=== PATIENT | female | born 1990 | race Caucasian/White ===

== ENCOUNTER 2018-04-06 16:23 | Inpatient (IN) | payer BC ==
[~2018-04-06] VITALS: Ht 172.7 cm; Wt 78.6 kg
[2018-04-21] VITALS (10 sets, daily range): BP systolic 114–138; BP diastolic 64–86; PULSE 71–86; TEMP 98.2
--- NOTE | 2018-04-21 18:55 | NUR ---
at 39 weeks and 3 days arrives to unit for scheduled induction of labor. Pt ambulatory accompanied by spouse. Pt oriented to room, bed in low and locked position, call light within reach, and clean gown on. Pt reports feeling good movement, reports occasional contrations, denies LOF or vaginal bleeding. EFM and toco explained and applied. Plan of care and method of induction reviewed with patient and spouse, both verbalized understanding. SVE 0.5/70/-3
--- NOTE | 2018-04-21 19:20 | NUR ---
IV started in left forearm with 1 attempt. Labs obtained off of IV start. Lactated Ringers infusing to gravity.
--- NOTE | 2018-04-21 19:40 | NUR ---
Cervidil placed in posterior fornix of vagina at this time. Pt educated to remain in a semi flat position with wedge on either side for initial 2 hours. Pt also informed of nothing to eat or drink in first 2 hours after cervidil placement. Pt verbalizes understanding.
[2018-04-21] MEDS ORDERED: [UNRECOGNIZED DRUG - OTHER] (19:51)
[2018-04-21] MEDS ORDERED: DEXTROSE (19:51)
[2018-04-21] MEDS ORDERED: PRENATAL MVI (19:52)
[2018-04-21] MEDS ORDERED: ASPIRIN 81M81 MG/TA2 PO ×2 (19:52→20:12)
[2018-04-21 19:54] LABS: BASO % 0.4 % (0.0-2.0); EOS % 0.4 % (0-4.0); GRAN # 4.9 (1.4-6.5); GRAN % 62.8 % (42.2-75.2); HEMATOCRIT 39.9 % (37.0-47.0); HEMOGLOBIN 14.1 g/dl (12.5-16.0); LYMPH % 25.3 % (20.0-51.0); MEAN CELL VOLUME 93 fl (80.0-100.0); MEAN CORPUSCULAR HEMOGLOBIN 33 pg (27.0-31.0); MEAN CORPUSCULAR HGB CONC 35 g/dl (33.0-37.0); MEAN PLATELET VOLUME 11.3 fl (7.4-10.4); MONO # 0.8 (0.1-0.6); MONO % 10.5 % (1.7-9.3); PLATELET COUNT 163 K/mm3 (130-400); RED BLOOD COUNT 4.31 M/mm3 (4.10-5.30); REDCELL DISTRIBUTION WIDTH-CV 12.4 % (11.5-14.5)
[2018-04-22] VITALS (54 sets, daily range): BP systolic 100–139; BP diastolic 57–87; PULSE 64–130; TEMP 97.5–99
--- NOTE | 2018-04-22 09:30 | NUR ---
Pt requesting epidural. Jody Swenson CRNA notified. Upon arrival to unit, due to recent heparin injection, orders for PTT. Labs resulted. PTT too high for epidural placement at this time. Dr. Jimenez notified of lab results. Orders to discontinue pitocin infusion. Pt opts to use whirlpool for pain management. Will recheck PTT in afternoon and reasses pain management options. Pt agrees to POC. 1102-FHR reassuring. Pt taken off monitors. Into whirlpool at this time.
--- NOTE | 2018-04-22 11:18 | NUR ---
Pt back to birthing ball. 1150-SVE per this RN /-2. Reactive FHR strip. Pt taken off monitors to [facility].
--- NOTE | 2018-04-22 12:20 | NUR ---
doppler performed. FHR audible. VSS.
--- NOTE | 2018-04-22 14:28 | NUR ---
Pt sitting upright for epidural placement. 1439-Test dose administed by Messi Cavanaugh CRNA. No adverse effects noted. See anesthesia record. Pt repositioned WR. Call light within reach. Safety reviewed. Updated on POC. No questions or concerns at this time.
--- NOTE | 2018-04-22 16:35 | NUR ---
Difficulty tracing FHR. RN at bedside adjusting monitors. FHR audible.
--- NOTE | 2018-04-22 17:00 | NUR ---
SVE per Dr. Jimenez /1. Orders to continue increasing pitocin.
--- NOTE | 2018-04-22 17:35 | NUR ---
Dr. Jimenez notified of SVE and FH decelerations. No new orders at this time.
--- NOTE | 2018-04-22 18:30 | NUR ---
Recurrent variables noted with each contraction down to 70-90 with spontaneous return to baseline. Moderate variability in between contractions.
--- NOTE | 2018-04-22 19:00 | NUR ---
Recurrent variable decelerations noted with contractions with spontaneous return to baseline. Moderate variability in between contractions.
--- NOTE | 2018-04-22 19:15 | NUR ---
Recurrent variable decelerations noted with contractions with spontaneous return to baseline. Moderate variability noted in between contractions. 1914 - SVE 10/100/+1. Pt educated on pushing techniques, verbalized understanding. 1917 - Initial push, pt pushing well with contractions. 1939 - Pt continues to push well with contractions. Occasional late decelerations and variable decelerations noted. Moderate variability in between contractions. Payne removed at this time. 100 mL clear, yellow, urine out. 1947 - Pt pushing well with contractions. Small crown with pushes. Dr. Jimenez called for delivery. 1954 - 500 emesis 1999 - Pt pushing very well with contractions, told not to continue pushing at this time until Dr. Jimenez is at bedside, pt verbalized understanding. 2002 - Pt encouraged to take slow cleansing breaths during contractions. 2013 - Dr. Jimenez gowned and gloved at perineum, pt told to begin pushing again, pushing well with contractions. 2019 - Spontaneous vaginal delivery of viable baby girl. Dr. Jimenez placed infant on mothers abdomen, care of infant assumed to nursery RN Fabiano. Cord clamped and cut. Cord blood obtained. Pitocin off. 2022 - Spontaneous delivery of intact placenta. Pitocin infusing at 333 mL/hr per protocol. Fundal massage initiated by this RN. Fundus firm and down 1 from umbilicus. 2024 - Perineal repairs by Dr. Jimenez. Red lisa to drain bladder. 2029 - Pericare provided. Ice pack to perineum. New chux pad beneath patient. Pt repositioned in bed to high fowlers.
--- NOTE | 2018-04-22 23:50 | NUR ---
Pt able to lift and hold both legs off of bed for 5 seconds. Pt positioned to sitting on edge of bed. Epidural catheter removed, tip round and intact, pt tolerated well. Pt able to ambulate to bathroom with standby assistance. Pt unable to void at this time. Pericare explained and performed. Clean gown on. New panties and pad applied. Pt transferred to room 214 by wheelchair with belongings.
[2018-04-23 03:00] VITALS: BP 109/70; PULSE 86; TEMP 98
[2018-04-23 07:20] VITALS: BP 107/75; PULSE 118; TEMP 97.7
--- NOTE | 2018-04-23 09:09 | NUR ---
Initial visit; Parents and family thanked Pad Extraction Tender for offering congratulations and God's blessings for the of their little girl. Pad Extraction Tender thanked them for choosing [facility]. They spoke of how wonderful their experience here has been.
[2018-04-23 10:25] LABS: BASO # 0.1 (0.0-0.2); BASO % 0.3 % (0.0-2.0); EOS % 0.2 % (0-4.0); GRAN # 13.8 (1.4-6.5); GRAN % 79.4 % (42.2-75.2); LYMPH # 2.1 (1.2-3.4); LYMPH % 12.1 % (20.0-51.0); MEAN CELL VOLUME 94 fl (80.0-100.0); MEAN CORPUSCULAR HGB CONC 35 g/dl (33.0-37.0); MEAN PLATELET VOLUME 10.5 fl (7.4-10.4); MONO # 1.2 (0.1-0.6); MONO % 7.1 % (1.7-9.3); PLATELET COUNT 151 K/mm3 (130-400); RED BLOOD COUNT 3.56 M/mm3 (4.10-5.30); REDCELL DISTRIBUTION WIDTH-CV 12.6 % (11.5-14.5)
[2018-04-23 11:00] VITALS: BP 115/71; PULSE 101; TEMP 97.2
[2018-04-23 11:07] LABS: HEMATOCRIT 33.4 % (37.0-47.0); MEAN CORPUSCULAR HEMOGLOBIN 33 pg (27.0-31.0)
[2018-04-23 11:08] LABS: HEMOGLOBIN 11.8 g/dl (12.5-16.0)
[2018-04-23 15:39] VITALS: BP 121/69; PULSE 99; TEMP 97.5
[2018-04-23 20:00] VITALS: BP 112/65; PULSE 100; TEMP 97.8
[2018-04-24 02:00] VITALS: BP 120/68; PULSE 80; TEMP 98
--- NOTE | 2018-04-24 02:00 | NUR ---
BABY IS VERY FUSSY- GASSY- DOES NOT LATCH WELL- MOM AND DAD EXPRESS FRUSTRATION- COMFORT MEARSURES REVIEWED
[2018-04-24 05:35] VITALS: BP 118/78; PULSE 99; TEMP 99
[2018-04-24] MEDS ORDERED: PERCOCET 325 MG1 TA2 PO (08:19)
[2018-04-24] MEDS ORDERED: MOTRIN 800800 MG/TAB PO (08:19)
[2018-04-24 08:44] VITALS: BP 124/71; PULSE 118; TEMP 97.5
== END 2018-04-24 13:40 | disposition home or self-care (01) | DRG 806 ==
LOC: LDR 04-21 07:24 → OB 04-23 00:01 → EDSTATUS 04-25 07:23 → LDRO 04-25 16:23
PROVIDERS: ADMIT Obstetrics & Gynecology
PROC: 3E0P7VZ Introduction of Hormone into Female Reproductive, Via Natural or Artificial Opening (ICD-10-PCS; 2018-04-21)
PROC: 10E0XZZ Delivery of Products of Conception, External Approach (ICD-10-PCS; principal; 2018-04-22)
PROC: 0KQM0ZZ Repair Perineum Muscle, Open Approach (ICD-10-PCS; 2018-04-22)
PROC: 3E033VJ Introduction of Other Hormone into Peripheral Vein, Percutaneous Approach (ICD-10-PCS; 2018-04-22)
PROC: 10907ZC Drainage of Amniotic Fluid, Therapeutic from Products of Conception, Via Natural or Artificial Opening (ICD-10-PCS; 2018-04-22)
DX: O99.12 Other diseases of the blood and blood-forming organs and certain disorders involving the immune mechanism complicating childbirth (principal); D68.51 Activated protein C resistance; Z37.0 Single live birth; Z3A.39 39 weeks gestation of pregnancy; O70.1 Second degree perineal laceration during delivery; O77.0 Labor and delivery complicated by meconium in amniotic fluid; O69.81X0 Labor and delivery complicated by cord around neck, without compression, not applicable or unspecified; O70.0 First degree perineal laceration during delivery; Z86.73 Personal history of transient ischemic attack (TIA), and cerebral infarction without residual deficits; N80.8 Other endometriosis; Z79.01 Long term (current) use of anticoagulants
CPT/HCPCS: J1200; J1644; J1650; J2590; J7120

== ENCOUNTER 2020-01-31 05:19 | Inpatient (IN) | payer BC ==
[2020-01-31] VITALS (36 sets, daily range): BP systolic 102–142; BP diastolic 56–79; PULSE 71–116; TEMP 97.9–98.7
[~2020-01-31] VITALS: Ht 170.2 cm; Wt 84.1 kg
--- NOTE | 2020-01-31 05:15 | NUR ---
G3L1 at 38 weeks and 1 day arrive to unit with complaint of spontaneous rupture of membranes. Pt states around 0230 she felt a gush down her leg and has continued to leak small amounts of blood tinged fluid since then. Pt also reports contractions every 6-7 minutes. Good movement. Pt denies problems this . Was seeing MFM for Factor V and is currently taking Lovenox. Denies headaches, blurry vision, or RUQ pain. Pt oriented to room, call light within reach, bed in low and locked position. Clean gown on. US and toco explained and applied. Plan of care reviewed with patient and spouse. Admission assessment started. Vital signs obtained. SVE 3/80/-3, vertex position. Amnitrace negative.
[~2020-01-31 05:19] MED LIST: ASPIRIN 81M81 MG/TA2 PO; DEXTROSE; MOTRIN 800800 MG/TAB PO; PERCOCET 325 MG1 TA2 PO; PRENATAL MVI; [UNRECOGNIZED DRUG - OTHER]
[2020-01-31] MEDS ORDERED: LOVENOX 4040 MG/0.4 SQ (05:40)
--- NOTE | 2020-01-31 08:30 | NUR ---
PT FELT A GUSH OF FLUID. AMNIOTRACE POSITIVE. DR LUNA HERE AT THE HOSPITAL AND NOTIFIED. IN TO SEE PT AND DISCUSS PLAN OF CARE.
[2020-01-31 09:45] LABS: BASO % 0.3 % (0.0-2.0); EOS % 0.1 % (0-4.0); GRAN # 7.2 (1.4-6.5); GRAN % 79.4 % (42.2-75.2); HEMATOCRIT 39.7 % (37.0-47.0); HEMOGLOBIN 13.9 g/dl (12.5-16.0); LYMPH % 11.5 % (20.0-51.0); MEAN CELL VOLUME 93 fl (80.0-100.0); MEAN CORPUSCULAR HEMOGLOBIN 33 pg (27.0-31.0); MEAN CORPUSCULAR HGB CONC 35 g/dl (33.0-37.0); MEAN PLATELET VOLUME 10.6 fl (7.4-10.4); MONO # 0.8 (0.1-0.6); MONO % 8.3 % (1.7-9.3); PLATELET COUNT 176 K/mm3 (130-400); RED BLOOD COUNT 4.26 M/mm3 (4.10-5.30); REDCELL DISTRIBUTION WIDTH-CV 12.9 % (11.5-14.5)
--- NOTE | 2020-01-31 10:30 | NUR ---
PT SITTING UP FOR EPIDURAL. VISHNU ALBA, IN AT 1014 FOR EPIDURAL PLACEMENT. SINGLE SHOT AT 1024 WITH NO ABNORMAL SYMPTOMS OBSERVED OR REPORTED. TEST DOSE AT 1026 AND NO ABNORMAL SYMPTOMS WITH IT EITHER. REPOSITIONED LYING DOWN AFTER EPIDURAL PLACEMENT.
--- NOTE | 2020-01-31 11:00 | NUR ---
FELIZ CATHETER PLACED. SVE 5-6/80/-2. RIGHT SIDE STILL FEELING QUITE A BIT AND LEFT LEG IS NUMB. REPOSITIONED WEDGE RIGHT.
--- NOTE | 2020-01-31 11:45 | NUR ---
PT REPORTING FEELING MORE PAIN WITH CONTRACTIONS DESPITE HITTING BOLUS BUTTON. PHONED VISHNU ALBA, WHO WILL COME EVALUATE. SVE /-2
--- NOTE | 2020-01-31 12:00 | NUR ---
VISHNU ALBA, IN AT 1150 TO DOSE EPIDURAL.
--- NOTE | 2020-01-31 13:30 | NUR ---
PT STRUGGLING TO BREATHE THROUGH CONTRACTIONS, EXPERIENCING PAIN. CALLED CANDY SUPERVISOR TO COME CHECK ON EPIDURAL.
--- NOTE | 2020-01-31 13:30 | NUR ---
EPIDURAL CATHETER REMOVED PT IS GOING TO RECEIVE AN INTRATHECAL. CATHETER REMOVED BY CRNA. PARTH
--- NOTE | 2020-01-31 13:45 | NUR ---
Diana HARDING CRNA, IN AT 1333 TO ASSESS PT. INTRATHECAL INJECTION AT 1340. EPIDURAL CATHETER REMOVED. PT REPOSITIONED LYING DOWN. REPORTING FEELING MUCH BETTER WITHIN 5 MINUTES OF INTRATHECAL.
--- NOTE | 2020-01-31 14:47 | NUR ---
PT FEELING LOTS OF PRESSURE. FHT'S WITH RECURRENT VARIABLE DECELS. SVE WITH COMPLETE DILATION AT 1435. CALLED DR LUNA TO COME FOR DELIVERY AT 1435. FELIZ CATHETER REMOVED. PT POSITIONED FOR DELIVERY. DR LUNA HERE AT 1440. PUSHING STARTED AT 1443 WITH OF MALE AT 1447. NUCHAL CORD REDUCED AFTER DELIVERY OF HEAD. TO MOM'S CHEST WITH GOOD COLOR AND VIGOROUS CRY.
--- NOTE | 2020-01-31 14:55 | NUR ---
DR LUNA AT BEDSIDE REPAIRING PERINEUM. FUNDUS FIRM WITH SMALL TO MODERATE AMOUNT OF BLEEDING OBSERVED. PITOCIN STARTED AT 333ML/HR AFTER DELIVERY OF INFANT.
--- NOTE | 2020-01-31 15:40 | NUR ---
PT'S RIGHT LEG HAS FULL FEELING BACK BUT NOT LEFT LEG.
--- NOTE | 2020-01-31 17:20 | NUR ---
PT UP TO BATHROOM. LEFT LEG STILL SLIGHTLY NUMB SO THIS RN STANDBY ASSIST PT AMBULATES. VOIDS WITHOUT DIFFICULTY. PERICARE PERFORMED. NEW PAD,UNDERWEAR, AND GOWN IN PLACE. TRANSFERRED TO ROOM VIA WHEELCHAIR.
--- NOTE | 2020-01-31 18:14 | NUR ---
PER DR LUNA PT IS TO RESTART HER LOVENOX TOMORROW 02/01/2020
--- NOTE | 2020-01-31 18:30 | NUR ---
Report recieved. Sitting on the side of the bed rocking infant. Updated whiteboard and reviewed POC.
[2020-02-01 00:15] VITALS: BP 106/64; PULSE 84; TEMP 97.7
[2020-02-01 03:45] VITALS: BP 106/71; PULSE 76; TEMP 97.6
[2020-02-01 08:17] VITALS: BP 116/76; PULSE 76; TEMP 98.1
--- NOTE | 2020-02-01 09:02 | NUR ---
Initial visit; Parents thanked Machine Deburrer for offering congratulations and God's blessings for the of their son. Machine Deburrer thanked family for choosing [facility].
[2020-02-01] MEDS ORDERED: IBU800 M1 PO (11:46)
[2020-02-01] MEDS ORDERED: LOVENOX 4040 MG/0.4 SQ (11:46)
[2020-02-01 15:54] VITALS: BP 108/64; PULSE 72; TEMP 98.7
[2020-02-01 21:07] VITALS: BP 107/62; PULSE 86; TEMP 98
[2020-02-02 08:06] VITALS: BP 102/68; PULSE 76; TEMP 98.1
== END 2020-02-02 12:20 | disposition home or self-care (01) | DRG 806 ==
LOC: LDRO 05:19 → LDR 08:20 → OB 17:30
PROVIDERS: Obstetrics & Gynecology; ADMIT Obstetrics & Gynecology
PROC: 10E0XZZ Delivery of Products of Conception, External Approach (ICD-10-PCS; principal; 2020-01-31)
PROC: 0KQM0ZZ Repair Perineum Muscle, Open Approach (ICD-10-PCS; 2020-01-31)
DX: O99.12 Other diseases of the blood and blood-forming organs and certain disorders involving the immune mechanism complicating childbirth (principal); D68.51 Activated protein C resistance; Z37.0 Single live birth; O69.81X0 Labor and delivery complicated by cord around neck, without compression, not applicable or unspecified; O70.1 Second degree perineal laceration during delivery; Z3A.38 38 weeks gestation of pregnancy
CPT/HCPCS: J1650; J2590; J2795; J3010; J7120